=== PATIENT | female | born 1980 | race American Indian/Alaskan Native ===

== ENCOUNTER 2018-11-26 20:44 | Emergency (ER) | payer MEDICAID ==
--- NOTE | 2018-11-26 21:45 | Event Note ---
ED Screening Note Date of service: 11/26/18 Time: 21:42 ED Screening Note: 38 y/o female comes in for right thumb pain and swelling on Thursday. Went to ER they place surgiseal Was placed on Keflex which has given diarrhea and vomiting. Recent surgery on gallbladder surgery. This initial assessment/diagnostic orders/clinical plan/treatment(s) is/are subject to change based on patients health status, clinical progression and re- assessment by fellow clinical providers in the ED. Further treatment and workup at subsequent clinical providers discretion. Patient/guardian urged not to elope from the ED as their condition may be serious if not clinically assessed and managed. Initial orders include:
[2018-11-26] MEDS ORDERED: BENADRYL IV ONE (22:02)
[2018-11-26] MEDS ORDERED: ZOFRAN IV ONE (22:02)
[2018-11-26] MEDS ORDERED: SUBLIMAZE IV ONE (22:02)
[2018-11-26] MEDS ORDERED: NACL 0.9% 1000 ML 1,000 ML IV ONE (22:06)
[2018-11-26] MEDS ORDERED: LEVAQUIN PO ONE (22:07)
[2018-11-26] MEDS ORDERED: BACTRIM DS PO ONE (22:07)
--- NOTE | 2018-11-26 22:26 | Emergency Department Report ---
HPI - General Chief Complaint: Extremity Injury, Upper Time Seen by Provider: 11/26/18 21:41 - HPI HPI: Room 35 The patient is a 38-year-old female presenting with a chief complaint of right thumb pain. The patient states 3 days ago she accidentally cut her right thumb she fell back striking and breaking a window. The patient states she went to a local ED and was told that they could not close the wound and subsequently placed Surgicel dressing over it. The patient states she was started on antibiotics (Keflex) push develop nausea vomiting and diarrhea with taking them. Over the past 2 days patient has noticed increased pain and swelling of the right thumb. The patient states she is uncertain if she's had a fever. The patient currently gives her pain a score of 7/10 ED Past Medical Hx - Past Medical History Previous Medical History?: No - Surgical History Past Surgical History?: Yes Hx Cholecystectomy: Yes Additional Surgical History: acl, hernia repair, c section x2 - Family History Family history: no significant - Social History Smoking Status: Never Smoker Substance Use Type: None - Medications Home Medications: Home Medications Medication Instructions Recorded Confirmed Last Taken Type Ciprofloxacin HCl [Ciprofloxacin 500 mg PO Q12HR #20 tab 11/27/18 Unknown Rx TAB] Ibuprofen [Motrin 800 MG tab] 800 mg PO Q8HR PRN #20 tablet 11/27/18 Unknown Rx Sulfamethoxazole/Trimethoprim 1 each PO BID #20 tablet 11/27/18 Unknown Rx [Bactrim DS TAB] oxyCODONE /ACETAMINOPHEN [Percocet 1 - 2 tab PO Q6HR PRN #14 tablet 11/27/18 Unknown Rx 5/325] ED Review of Systems ROS: Stated complaint: RIGHT THUMB SWOLLEN AND PAIN X 3DAYS Other details as noted in HPI Constitutional: fever (?) Eyes: denies: eye pain ENT: denies: throat pain Respiratory: no symptoms reported Cardiovascular: denies: chest pain Endocrine: denies: no symptoms reported Gastrointestinal: denies: abdominal pain Skin: change in color Physical Exam - Physical Exam Vital Signs: Vital Signs 11/26/18 21:38 Temperature 98.7 F Pulse Rate 102 H Respiratory 16 Rate Blood Pressure 137/78 O2 Sat by Pulse 100 Oximetry Physical Exam: GENERAL: The patient is well-developed well-nourished female sitting on stretcher appearing to be in mild discomfort. [] HEENT: Normocephalic. Atraumatic. Extraocular motions are intact. Patient has moist mucous membranes. NECK: Supple. Trachea midline CHEST/LUNGS: Clear to auscultation. There is no respiratory distress noted. HEART/CARDIOVASCULAR: Regular. There is no tachycardia. There is no gallop rub or murmur. SKIN: There is erythema of the dorsum of the right thumb (no Kanavel signs present). There is no diaphoresis. NEURO: The patient is awake, alert, and oriented. The patient is cooperative. The patient has no focal neurologic deficits. The patient has normal speech MUSCULOSKELETAL: There is tenderness to palpation of the dorsum of the right thumb ED Course Vital Signs 11/26/18 21:38 Temperature 98.7 F Pulse Rate 102 H Respiratory 16 Rate Blood Pressure 137/78 O2 Sat by Pulse 100 Oximetry ED Medical Decision Making - Lab Data Result diagrams: 11/26/18 22:53 11/26/18 22:53 Laboratory Tests 11/26/18 11/26/18 22:53 22:53 WBC 9.0 RBC 3.67 Hgb 10.5 Hct 31.0 MCV 85 MCH 29 MCHC 34 RDW 13.8 Plt Count 184 Lymph % (Auto) 40.3 H Wayne % (Auto) 9.8 H Eos % (Auto) 1.7 Baso % (Auto) 0.2 Lymph # 3.6 Wayne # 0.9 H Eos # 0.2 Baso # 0.0 Seg Neutrophils % 48.0 Seg Neutrophils # 4.3 Sodium 136 L Potassium 3.9 Chloride 101.1 Carbon Dioxide 24 Anion Gap 15 BUN 14 Creatinine 0.3 L Estimated GFR > 60 BUN/Creatinine Ratio 47 Glucose 87 Calcium 9.1 - Radiology Data Radiology results: report reviewed (right thumb x-ray), image reviewed (right thumb x-ray) interpreted by me: Right thumb x-ray-no radiopaque foreign body seen. No fracture [facility] [address] [place] [address] XRay Report Signed Patient: DANIEL WOLFF MR#: [id number] : 1980 Acct:[id number] Age/Sex: 38 / F ADM Date: 11/26/18 Loc: ED Attending Dr: Ordering Physician: MECCA VALLES MD Date of Service: 10/11/19 Procedure(s): XR finger(s) 2+V RT Accession Number(s): [id number] cc: MECCA VALLES MD Fluoro Time In Minutes: RIGHT FINGER(S) 3 VIEW(S) INDICATION / CLINICAL INFORMATION: MAIN: cut thumb in broken window pain and swelling from cutting 1st digit on window x3 days; went to another hospital, could not stop bleeding and placed "some surgical mesh" on 1st digit, and now it wont come off (which is seen on films) COMPARISON: None available. FINDINGS: BONES / JOINT(S): No acute fracture or subluxation. No significant arthritis. SOFT TISSUES: Soft tissue swelling of the right thumb. Radiopaque bandage is noted on the dorsal aspect of the thumb IP joint. No definite radiopaque foreign body. ADDITIONAL FINDINGS: None. Signer Name: Kalina Ventura MD Signed: 11/26/2018 10:36 PM Workstation Name: [id number] Transcribed By: DT Dictated By: Nehemiah Ventura MD Electronically Authenticated By: Nehemiah Ventura MD Signed Date/Time: 11/26/182235 DD/ 34 TD/TT: - Differential Diagnosis finger infection Critical care attestation.: If time is entered above; I have spent that time in minutes in the direct care of this critically ill patient, excluding procedure time. ED Disposition Clinical Impression: Cellulitis of right thumb, Pain of right thumb Disposition: DC-01 TO HOME OR SELFCARE Is pt being admited?: No Does the pt Need Aspirin: No Condition: Stable Instructions: Cellulitis (ED) Additional Instructions: It is very important that you follow-up with a hand specialist as soon as possible for further management. Prescriptions: Sulfamethoxazole/Trimethoprim [Bactrim DS TAB] 1 each PO BID #20 tablet Ciprofloxacin HCl [Ciprofloxacin TAB] 500 mg PO Q12HR #20 tab Ibuprofen [Motrin 800 MG tab] 800 mg PO Q8HR PRN #20 tablet PRN Reason: Pain, Moderate (4-6) oxyCODONE /ACETAMINOPHEN [Percocet 5/325] 1 - 2 tab PO Q6HR PRN #14 tablet PRN Reason: Pain Referrals: Dr Mcginnis, [facility] [Other] - GREG JOSE WILEY MD [Staff Physician] - GREG Time of Disposition: 00:20
--- NOTE | 2018-11-26 22:40 | XRay Report ---
RIGHT FINGER(S) 3 VIEW(S) INDICATION / CLINICAL INFORMATION: MAIN: cut thumb in broken window pain and swelling from cutting 1st digit on window x3 days; went to another hospital, could not stop bleeding and placed "some surgical mesh" on 1st digit, and now it wo nt come off (which is seen on films) COMPARISON: None available. FINDINGS: BONES / JOINT(S): No acute fracture or subluxation. No significant arthritis. SOFT TISSUES: Soft tissue swelling of the right thumb. Radiopaque bandage is noted on the dorsal aspe ct of the thumb IP joint. No definite radiopaque foreign body. ADDITIONAL FINDINGS: None. Signer Name: Kalina Ventura MD Signed: 11/26/2018 10:36 PM Workstation Name: [id number]
[2018-11-26] MEDS ORDERED: SUBLIMAZE ONE (22:53)
[2018-11-26 23:40] LABS: Basophils % (Auto) 0.2 % (0.0-1.8); Eosinophils # (Auto) 0.2 K/mm3 (0.0-0.4); Eosinophils % (Auto) 1.7 % (0.0-4.3); Hemoglobin 10.5 gm/dl (10.1-14.3); Lymphocytes # (Auto) 3.6 K/mm3 (1.2-5.4); Lymphocytes % (Auto) 40.3 % (13.4-35.0); Mean Corpuscular HGB Conc 34 % (30-34); Mean Corpuscular Volume 85 fl (79-97); Monocytes # (Auto) 0.9 K/mm3 (0.0-0.8); Monocytes % (Auto) 9.8 % (0.0-7.3); Platelet Count 184 K/mm3 (140-440); Red Blood Count 3.67 M/mm3 (3.65-5.03); Red Cell Distribution Width 13.8 % (13.2-15.2)
[2018-11-27 00:01] LABS: BUN/Creatinine Ratio 47; Blood Urea Nitrogen 14 mg/dL (7-17); Calcium 9.1 mg/dL (8.4-10.2); Hemolysis Index 0
[2018-11-27] MEDS ORDERED: DILAUDID IV ONE (00:12)
[2018-11-27] MEDS ORDERED: TORADOL IV ONE (00:12)
[2018-11-27 00:57] VITALS: BP 119/65
== END 2018-11-27 00:56 | disposition home or self-care (01) ==
LOC: ED 20:44
DX: L03.011 Cellulitis of right finger (principal); R11.2 Nausea with vomiting, unspecified; R19.7 Diarrhea, unspecified; Z90.49 Acquired absence of other specified parts of digestive tract; Z79.899 Other long term (current) drug therapy
CPT/HCPCS: 36415; 73140; 80048; 85025; 87040; 96361; 96374; 96375; 99284; J1170; J1200; J1885; J2405; J3010; J7030